=== PATIENT | male | born 1955 ===

== ENCOUNTER 2023-01-17 08:58 | Emergency (ER) | payer SELFPAY ==
[~2023-01-17] VITALS: Ht 182.9 cm; Wt 139.0 kg
[2023-01-17 08:59] VITALS: BP 120/74; TEMP 99.1; O2SAT 95
== END 2023-01-17 10:35 | disposition left against medical advice (07) ==
LOC: M ED 08:58
DX: Z53.21 Procedure and treatment not carried out due to patient leaving prior to being seen by health care provider (principal)

== ENCOUNTER → 2023-01-17 | Outpatient (REF) | payer MEDICARE, OTHER | LOC: M LAB REF 11:53 | PROVIDERS: ATTEND Physician Assistant | DX: B34.9 Viral infection, unspecified (principal) ==